=== PATIENT | male | born 1975 | race Caucasian/White ===

== ENCOUNTER 2021-09-22 11:40 | Emergency (ER) | payer OTHER ==
--- NOTE | 2021-09-22 11:50 | ERPHSYRPT ---
- History of Present Illness Time Seen by Provider: 09/22/21 11:45 Source: patient, old records, police Exam Limitations: clinical condition Physician History: This is a morbidly obese 46-year-old white male resident of nearby [facility] who has multiple medical problems including hypertension, diabetes, hyperlipidemia, COPD who has a You catheter in place and presents with complaint of worsening shortness of breath/respiratory distress. Patient was placed on CPAP in route to the emergency department. Patient arrives handcuffed which were removed immediately upon transfer to bed. He has no complaints of abdominal pain or chest pain. His primary complaint is shortness of breath. Per EMS report, the patient is not passing urine in the You catheter despite use of furosemide. Timing/Duration: day(s) (3 to 4 days) Severity of Dyspnea-Max: moderate (To severe) Severity of Dyspnea-Current: moderate Possible Cause: occasional episodes Associated Symptoms: constant, anxiety, ankle swelling, No chest pain/discomfort Allergies/Adverse Reactions: No Known Drug Allergies Allergy (Unverified 09/22/21 11:59) Travel Risk - International Travel Have you traveled outside of the country in past 3 weeks: No - Coronavirus Screening Are you exhibiting any of the following symptoms?: No Close contact with a COVID-19 positive Pt in past 14-21 Days: No - Review of Systems Constitutional: Weakness Eyes: No Symptoms Ears, Nose, & Throat: No Symptoms Respiratory: Dyspnea Cardiac: No Symptoms Abdominal/Gastrointestinal: No Symptoms Genitourinary Symptoms: No Symptoms Musculoskeletal: No Symptoms Skin: No Symptoms Neurological: No Symptoms Psychological: No Symptoms Endocrine: No Symptoms Hematologic/Lymphatic: No Symptoms Immunological/Allergic: No Symptoms All Other Systems: Reviewed and Negative - Past Medical History Cardiac History: High Cholesterol, Hypertension Endocrine Medical History: Diabetes Type I, Diabetes Type II - Past Surgical History Past Surgical History: Yes - Nursing Vital Signs Nursing Vital Signs: Initial Vital Signs Temperature 97.9 F 09/22/21 11:43 Pulse Rate 86 09/22/21 11:43 Respiratory Rate 38 H 09/22/21 11:43 Blood Pressure 127/82 09/22/21 11:43 O2 Sat by Pulse Oximetry 96 09/22/21 11:43 Pain Scale Pain Intensity 0 - Physical Exam General Appearance: moderate distress, obese Eye Exam: PERRL/EOMI, eyes nml inspection Ears, Nose, Throat Exam: hearing grossly normal, normal ENT inspection Neck Exam: normal inspection, non-tender, supple, full range of motion Respiratory Exam: normal breath sounds, lungs clear, respiratory distress, airway intact, crackles/rales Cardiovascular/Chest Exam: normal heart sounds, regular rate/rhythm, normal peripheral pulses Abdominal/Gastrointestinal Exam: soft, normal bowel sounds Rectal Exam: not done Extremity Exam: non-tender, normal range of motion, no pedal edema, pelvis stable Neurologic Exam: alert, oriented x 3, cooperative, 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, normal mood/affect, nml cerebellar function, nml station & gait, sensation nml Skin Exam: normal color, warm, dry Lymphatic Exam: No adenopathy SpO2 Interpretation: normal O2 Delivery: Room Air - Course Nursing assessment & vital signs reviewed: Yes EKG Interpreted by Me: RATE (87), Sinus Rhythm, NORMAL AXIS, NORMAL INTERVALS, ST Elev, Other (Evidence of acute ST elevation in 2 3 and aVF leads) Ordered Tests: Active Orders 24 hr Category Date Time Status Cartography Technician STAT Care 09/22/21 12:04 Ordered EKG-ER Only STAT Care 09/22/21 12:03 Ordered IV Insertion STAT Care 09/22/21 12:03 Ordered Pulse Oximetry (ED) STAT Care 09/22/21 12:03 Ordered CHEST 1 VIEW (PORTABLE) Stat Exams 09/22/21 12:03 Ordered ARTERIAL BLOOD GASES Urgent Lab 09/22/21 11:40 Completed CBC W DIFF Stat Lab 09/22/21 12:03 Ordered CMP Stat Lab 09/22/21 12:03 Ordered D-DIMER QUANTITATIVE Stat Lab 09/22/21 12:03 Ordered Lactic Acid Urgent Lab 09/22/21 11:40 Completed NT PRO BNP Stat Lab 09/22/21 12:03 Ordered PROTIME WITH INR Stat Lab 09/22/21 12:03 Ordered TROPONIN Q3H Lab 09/22/21 12:15 Ordered TROPONIN Q3H Lab 09/22/21 15:15 Ordered TROPONIN Q3H Lab 09/22/21 18:15 Ordered TROPONIN Q3H Lab 09/22/21 21:15 Ordered TROPONIN Q3H Lab 09/23/21 00:15 Ordered Lab/Rad Data: Laboratory Results 09/22/21 Range/Units 11:40 Puncture Site LEFT RADIAL pCO2 76 H* (35-45) mmHg pO2 217 H* (75-100) mmHg Base Excess 5.3 H (-2.0-2.0) O2 Saturation 97.4 (94-100) g/dF ABG pH 7.27 L (7.35-7.45) ABG HCO3 34.9 H* (22-28) ABG O2 Sat (Measured) 99.4 (95-100) % Waldo Test yes A-a Gradient 401 a/A Ratio 0.35 Hemoglobin 12.4 Carboxyhemoglobin 1.2 (0.0-6.9) % THgb Methemoglobin 0.8 L (1.4-1.5) % Potassium 4.8 (3.5-5.1) Temperature 37.0 C POC O2 Flow Rate 100 % Lactic Acid 0.4 (0.4-2.0) - Progress Progress: improved Air Movement: fair Progress Note: 09/22/21 11:59 Medical decision making: This patient presents in respiratory distress on CPAP. He denies significant chest pain however his twelve-lead EKG shows acute ST elevation in leads II, III, aVF. He repeated the twelve-lead EKG 2 different times just after the initial and there is still elevation in these leads. I spoke with Dr. Kearns who is the emergency room physician at [facility] in [facility]. He stated to hold off on heparin or any other anticoagulation treatment at this time. Patient was given 3 baby aspirin since he had one baby aspirin earlier today. Patient is hemodynamically stable for transfer with a systolic blood pressure in the 120s and the heart rate in the 80s Blood Culture(s) Obtained: No Antibiotics given: No Counseled pt/family regarding: lab results, diagnosis, rad results - Departure Departure Disposition: Transfer Clinical Impression: Respiratory distress, STEMI (ST elevation myocardial infarction) Condition: Fair Critical Care Time: Yes Critical Care Time(excluding separately billable procedures): Critical 30-74 mins (30 minutes) Referrals: TERRY COBIAN MD [Primary Care Provider] - Follow up/PCP as directed
[2021-09-22 11:58] VITALS: BP 127/82; PULSE 86
[2021-09-22] MEDS ORDERED: BABY ASPIRIN 81 MG CHEW PO ONE (12:03)
[2021-09-22 12:04] LABS: A-aADO2 401; ABG HEMOGLOBIN 12.4; ABG POTASSIUM 4.8 (3.5-5.1); ARTERIAL BLD GAS O2 SATURATION 99.4 % (95-100); ARTERIAL BLOOD GAS BASE EXCESS 5.3 (-2.0-2.0); ARTERIAL BLOOD GAS FIO2 100 %; ARTERIAL BLOOD GAS PO2 217 mmHg (75-100); ARTERIAL BLOOD GAS pH 7.27 (7.35-7.45); CARBOXYHEMOGLOBIN 1.2 % THgb (0.0-6.9); HCO3- 34.9 (22-28); HGB O2 SAT 97.4 g/dF (94-100); Lactic Acid 0.4 (0.4-2.0); Methhemoglobin 0.8 % (1.4-1.5)
[2021-09-22 12:05] LABS: ABG SITE LEFT RADIAL; ALLEN TEST OK? yes; ARTERIAL BLOOD GAS PCO2 76 mmHg (35-45)
[2021-09-22 12:10] VITALS: O2SAT 98
[2021-09-22 12:24] LABS: INR 1.34 (0.8-3.0); PROTIME 15.8 SECONDS (9.4-12.5)
--- NOTE | 2021-09-22 12:24 | XRAY ---
Indication: Short of breath. Comparison: None Portable chest underinflated with marked cardiomegaly, vascular congestion, and bibasilar effusions/atelectasis left greater than right favoring cardiac decompensation. Superimposed pneumonia not completely excluded. Bony thorax intact.
[2021-09-22 12:31] LABS: Hematocrit 37.4 % (42-50); Hemoglobin 12.3 gm/dl (12.5-18.0); Mean Cell Volume 86.2 fl (78-100); Mean Corpuscular Hemoglobin 28.3 pg (26-32); Mean Corpuscular Hgb Concent. 32.9 g/dl (32-36); Mean Platelet Volume 11.2 fl (7.5-11.0); Platelet Count 249 K/mm3 (150-450); Red Blood Count 4.34 M/mm3 (4.1-5.6); Red Cell Distribution Width 13.9 % (11.5-14.0)
[2021-09-22 13:09] LABS: ALBUMIN 3.8 g/dL (3.5-5.0); ALKALINE PHOSPHATASE 160 U/L (38-126); BLOOD UREA NITROGEN 34 mg/dL (9-20); CHLORIDE 78 mmol/L (98-107); Carbon Dioxide 34 mmol/L (22-30); Creatinine 1 0.78 mg/dL (0.66-1.25); EST GLOMERULAR FILTRATION RATE > 60.0 ML/MIN; Glucose 147 mg/dL (74-106); NT PRO BNP 161 pg/mL (0-450); SGOT/AST 30 U/L (17-59); SGPT/ALT 32 U/L (0-50); Total Protein 7.9 g/dL (6.3-8.2)
[2021-09-22 13:12] LABS: SODIUM 119 mmol/L (137-145)
[2021-09-22 13:18] LABS: Lymphocytes 5 % (24-44); Monocyte 12 % (0.0-12.0); Neutrophils 83 % (36.-66.); Platelet Estimate NORMAL (NORMAL); Polychromasia 1+; Total Cells Counted 100
== END 2021-09-22 12:26 | disposition short-term general hospital (02) ==
LOC: ED 11:40
DX: I21.3 ST elevation (STEMI) myocardial infarction of unspecified site (principal); R06.03 Acute respiratory distress; E78.5 Hyperlipidemia, unspecified; I10 Essential (primary) hypertension; E11.9 Type 2 diabetes mellitus without complications
CPT/HCPCS: 36000; 36415; 36600; 71045; 80053; 82375; 82803; 83605; 83880; 84484; 85025; 85379; 85610; 93005; 93041; 94002; 94760; 99285; 99291; A9270-GY